=== PATIENT | male | born 1945 | race Caucasian/White ===

== ENCOUNTER 2018-03-04 20:05 | Emergency (ER) | payer MEDICARE ==
[~2018-03-04] VITALS: Ht 172.7 cm; Wt 81.7 kg
[2018-03-04] MEDS ORDERED: LEVE500 PO (20:15)
[2018-03-04] MEDS ORDERED: MEMA5TAB PO (20:15)
[2018-03-04] MEDS ORDERED: ESCI5 PO (20:15)
[2018-03-04] MEDS ORDERED: FLUC150A PO (20:15)
[2018-03-04] MEDS ORDERED: METF500C PO (20:16)
[2018-03-04] MEDS ORDERED: OLAN2.5 PO (20:17)
[2018-03-04] MEDS ORDERED: OLAN5 PO (20:17)
[2018-03-04] MEDS ORDERED: DESENEX43 GM TOP (20:17)
[2018-03-04] MEDS ORDERED: Desyrel50 MG PO (20:18)
[2018-03-04] MEDS ORDERED: PANT40 PO (20:18)
[2018-03-04] MEDS ORDERED: VITAMIN B-1100 MG PO (20:19)
[2018-03-04] MEDS ORDERED: ACET325 PO (20:19)
[2018-03-04] MEDS ORDERED: ANBESOL TOP (20:20)
[2018-03-04] MEDS ORDERED: Antacid Maximu355 ML PO (20:21)
[2018-03-04] MEDS ORDERED: BISA10S PR (20:21)
[2018-03-04] MEDS ORDERED: Enema133 M1 PR (20:22)
[2018-03-04] MEDS ORDERED: DOCU100 PO (20:22)
[2018-03-04] MEDS ORDERED: MELA3 PO (20:23)
[2018-03-04] MEDS ORDERED: IBUP600 PO (20:23)
[2018-03-04] MEDS ORDERED: LOPE2C PO (20:23)
[2018-03-04] MEDS ORDERED: Senna8.6 MG PO (20:24)
[2018-03-04] MEDS ORDERED: PROC25S PR (20:24)
[2018-03-04] MEDS ORDERED: Milk Of Ma400 MG/5 M PO (20:24)
[2018-03-04] MEDS ORDERED: ALBU90OI INH (20:25)
== END 2018-03-04 22:32 | disposition home or self-care (01) ==
LOC: ER 20:05
DX: T14.8XXA Other injury of unspecified body region, initial encounter (principal); W18.30XA Fall on same level, unspecified, initial encounter; Z79.899 Other long term (current) drug therapy; Z79.84 Long term (current) use of oral hypoglycemic drugs
CPT/HCPCS: 74176

== ENCOUNTER 2018-03-10 21:01 | Emergency (ER) | payer MEDICARE, OTHER ==
[~2018-03-10] VITALS: Ht 175.3 cm; Wt 90.7 kg
[~2018-03-10 21:01] MED LIST: ACET325 PO; ALBU90OI INH; ANBESOL TOP; Antacid Maximu355 ML PO; BISA10S PR; DESENEX43 GM TOP; DOCU100 PO; Desyrel50 MG PO; ESCI5 PO; Enema133 M1 PR; FLUC150A PO; IBUP600 PO; LEVE500 PO; LOPE2C PO; MELA3 PO; MEMA5TAB PO; METF500C PO; Milk Of Ma400 MG/5 M PO; OLAN2.5 PO; OLAN5 PO; PANT40 PO; PROC25S PR; Senna8.6 MG PO; VITAMIN B-1100 MG PO
== END 2018-03-10 22:37 | disposition home or self-care (01) ==
LOC: ER 21:01
DX: Z04.3 Encounter for examination and observation following other accident (principal); J44.9 Chronic obstructive pulmonary disease, unspecified; F32.9 Major depressive disorder, single episode, unspecified; F03.90 Unspecified dementia, unspecified severity, without behavioral disturbance, psychotic disturbance, mood disturbance, and anxiety; F17.290 Nicotine dependence, other tobacco product, uncomplicated; Z88.8 Allergy status to other drugs, medicaments and biological substances; Z79.899 Other long term (current) drug therapy; Z79.84 Long term (current) use of oral hypoglycemic drugs; W18.30XA Fall on same level, unspecified, initial encounter
CPT/HCPCS: 99283

== ENCOUNTER 2018-04-15 02:13 | Emergency (ER) | payer MEDICARE, OTHER ==
[~2018-04-15] VITALS: Ht 172.7 cm; Wt 77.1 kg
[2018-04-15 03:54] LABS: Source, Urine Clean Catch
[2018-04-15 04:00] LABS: Bilirubin, Urine Neg (Neg); Blood, Urine Neg (Neg); Glucose Qualitative, Urine Neg (Neg); Ketones, Urine Neg (Neg); Leukocyte Esterase, Urine Neg (Neg); Nitrite, Urine Neg (Neg); Protein, Urine Neg (Neg); Urobilinogen, Urine NORM (Normal)
[2018-04-15 04:06] LABS: Appearance, Urine Clear (Clear); Color, Urine Yellow (P-Yellow)
== END 2018-04-15 05:10 | disposition home or self-care (01) ==
LOC: ER 02:13
PROVIDERS: Emergency Medicine
DX: M54.5 Low back pain (principal); G89.29 Other chronic pain; M79.604 Pain in right leg; F32.9 Major depressive disorder, single episode, unspecified; F03.90 Unspecified dementia, unspecified severity, without behavioral disturbance, psychotic disturbance, mood disturbance, and anxiety; E11.9 Type 2 diabetes mellitus without complications; F17.200 Nicotine dependence, unspecified, uncomplicated; Z88.8 Allergy status to other drugs, medicaments and biological substances; Z79.899 Other long term (current) drug therapy; Z79.84 Long term (current) use of oral hypoglycemic drugs
CPT/HCPCS: 73502; 81003; 99284

== ENCOUNTER 2018-10-15 03:55 | Observation (INO) | payer MEDICARE, OTHER ==
[~2018-10-15] VITALS: Ht 172.7 cm; Wt 72.6 kg
[~2018-10-15 03:55] MED LIST changes: +ANTACID200 MG; +APLISOL; +DESENEX TOP; -DESENEX43 GM TOP; +OLAN10 PO; +ONDA4 PO; +Zithromax250 MG PO
[2018-10-15 04:52] LABS: BASOPHILS PERCENT AUTO 1 % (0-2); EOSINOPHILS ABSOLUTE AUTO 0.35 K/mm3 (0.00-0.68); EOSINOPHILS PERCENT AUTO 2 % (0-6); Hemoglobin 13.9 g/dL (13.5-17.5); IMMATURE GRAN ABSOLUTE AUTO 0.05 K/mm3 (0.00-0.10); IMMATURE GRAN PERCENT AUTO 0 % (0-1); LYMPHOCYTES ABSOLUTE AUTO 2.79 K/mm3 (0.84-5.20); LYMPHOCYTES PERCENT AUTO 17 % (21-46); MONOCYTES ABSOLUTE AUTO 0.68 K/mm3 (0.16-1.47); MONOCYTES PERCENT AUTO 4 % (4-13); Mean Corpuscular HGB 28.1 pg (26.0-34.0); Mean Corpuscular HGB Conc 32.3 g/dL (31.5-36.5); Mean Corpuscular Volume 87 fL (80-100); NEUTROPHILS ABSOLUTE AUTO 12.09 K/mm3 (1.96-9.15); NEUTROPHILS PERCENT AUTO 75 % (41-73); Platelet Count 275 K/mm3 (150-400); RDW Coefficient Variation 14.6 % (11.7-14.2); RDW Standard Deviation 46.7 fL (35.1-46.3); Red Blood Cell Count 4.94 M/mm3 (4.30-5.90); White Blood Cell Count 16.06 K/mm3 (4.00-11.30)
[2018-10-15 05:06] LABS: Alanine Aminotransfer (ALT/SGP 12 U/L (12-78); Albumin, Blood 4.4 g/dL (3.4-5.0); Albumin/Globulin Ratio 1.1 (0.8-1.8); Alk Phos 71 U/L (50-136); Anion Gap 7 mmol/L (6-16); Aspartate Aminotrans (AST/SGOT 12 U/L (12-37); Bilirubin, Total 0.6 mg/dL (0.1-1.0); Blood Urea Nitrogen 11 mg/dL (8-24); Bun/Creatinine Ratio 15.6 (12.0-20.0); CO2, Blood 29 mmol/L (21-32); Calcium, Blood 9.4 mg/dL (8.5-10.1); Chloride, Blood 106 mmol/L (98-108); Creatinine, Blood 0.71 mg/dL (0.60-1.20); Globulin, Blood 3.9 g/dL (2.2-4.0); Glomerular Filtration Rate >60 (60-); Glucose, Blood 141 mg/dL (70-99); Sodium, Blood 142 mmol/L (136-145); Total Protein, Blood 8.3 g/dL (6.4-8.2)
[2018-10-15 05:08] LABS: International Normalized Ratio 1.04; Prothrombin Time Results 10.7 Sec (9.7-11.5)
[2018-10-15 05:20] LABS: Source, Urine Catheter
[2018-10-15 05:25] LABS: Bilirubin, Urine Neg (Neg); Blood, Urine Neg (Neg); Glucose Qualitative, Urine Neg (Neg); Ketones, Urine 2+ (Neg); Leukocyte Esterase, Urine 1+ (Neg); Nitrite, Urine Neg (Neg); Protein, Urine Neg (Neg); Specific Gravity, Urine 1.005 (1.003-1.022); Urobilinogen, Urine NORM (Normal)
[2018-10-15 05:30] LABS: Appearance, Urine Clear (Clear); Color, Urine Yellow (P-Yellow)
[2018-10-15 05:31] LABS: Bacteria Few /hpf; Hyaline Casts 0-2 /lpf (0-2); Mucus Light ({null, 0-Heavy}); Red Blood Cells, Urine 0-2 /hpf (0-2); Squamous Epithelial Cells Not Seen /hpf (Few)
--- NOTE | 2018-10-15 07:45 | NUR ---
PT TO SDS FOR EGD W/MAC FOR FOOD IMPACTION. PT IS ALERT AND ORIENTED TO SELF ONLY. STATES PAIN AND POINTS TO CHEST/THROAT.
--- NOTE | 2018-10-15 08:17 | NUR ---
10/15/18 0817 Merissa Eller PT TO O3 # FOR PROCEDURE. SEE DR. Rodriguez notes for details.
--- NOTE | 2018-10-15 16:53 | NUR ---
PT HAS BEEN STABLE POST OP. PT CONFUSED, BED ALARM FOR SAFETY. PT DOES CALL OCCASIONALLY. PT USING URINAL WITH ASSIST. PT OOB WITH 2 ASSIST, VERY UNSTEADY ON FEET. PT DENIES PAIN. REG DIET PER DR BOLDEN. PT HAS HAD NO ISSUES SWALLOWING SPEECH EVAL CANCELLED. CONT IV FLUIDS X1 BAG. PT GETTING IV KEPPRA AND ABX. REPEAT CXR IN THE AM.
[2018-10-16 04:30] LABS: Hematocrit 33.3 % (37.0-53.0); Hemoglobin 10.5 g/dL (13.5-17.5); Mean Corpuscular HGB 27.7 pg (26.0-34.0); Mean Corpuscular HGB Conc 31.5 g/dL (31.5-36.5); Mean Corpuscular Volume 88 fL (80-100); Mean Platelet Volume 9.7 fL (9.1-12.4); Platelet Count 191 K/mm3 (150-400); RDW Coefficient Variation 14.6 % (11.7-14.2); RDW Standard Deviation 47.5 fL (35.1-46.3); Red Blood Cell Count 3.79 M/mm3 (4.30-5.90); White Blood Cell Count 11.07 K/mm3 (4.00-11.30)
[2018-10-16 04:50] LABS: Alanine Aminotransfer (ALT/SGP 10 U/L (12-78); Albumin, Blood 3.1 g/dL (3.4-5.0); Alk Phos 50 U/L (50-136); Anion Gap 6 mmol/L (6-16); Aspartate Aminotrans (AST/SGOT 9 U/L (12-37); Bilirubin, Total 0.8 mg/dL (0.1-1.0); Blood Urea Nitrogen 8 mg/dL (8-24); CO2, Blood 27 mmol/L (21-32); Calcium, Blood 7.8 mg/dL (8.5-10.1); Chloride, Blood 108 mmol/L (98-108); Creatinine, Blood 0.73 mg/dL (0.60-1.20); Globulin, Blood 3.1 g/dL (2.2-4.0); Glomerular Filtration Rate >60 (60-); Glucose, Blood 97 mg/dL (70-99); Potassium, Blood 3.3 mmol/L (3.5-5.5); Sodium, Blood 141 mmol/L (136-145); Total Protein, Blood 6.2 g/dL (6.4-8.2)
--- NOTE | 2018-10-16 08:43 | NUR ---
SHIFT SUMMARY PT ORIENTED TO SELF AND SITUATION. COOPERATIVE AND ABLE TO FOLLOW DIRECTION. S/P EGD; ABD SOFT; BTX4; PT DENIES NAUSEA. ASPIRATION PRECUATIONS. BED ALARM AND SIDE RAILS X3 FOR SAFETY. DR. GOMEZ NOTIFIED 0540 AM OF Hgb DROP FROM 13.9 TO 10.5, PT RECIEVING IV FLUIDS AND BP'S IN 100'S; NO NEW ORDERS RECIEVED. PT TO IMAGING AND BACK TO FLOOR THIS AM. CALL LIGHT IN REACH. REPORT GIVEN TO DAY SHIFT RN.
--- NOTE | 2018-10-16 15:31 | NUR ---
DISCHARGE SUMMARY PT LEFT VIA WC WITH TRANSPORT TO [facility] WITH ALL PERSONAL POSSESSIONS. IV DC'D.
== END 2018-10-16 11:40 | disposition home or self-care (01) ==
LOC: ER 03:55 → SURS 03:56 → MEDS 03:56 → SURS 07:33
PROVIDERS: Emergency Medicine; Internal Medicine Gastroenterology; ADMIT Internal Medicine
PROC: 0DC58ZZ Extirpation of Matter from Esophagus, Via Natural or Artificial Opening Endoscopic (ICD-10-PCS; principal; 2018-10-15 07:45)
PROC: 0D758ZZ Dilation of Esophagus, Via Natural or Artificial Opening Endoscopic (ICD-10-PCS; principal; 2018-10-15 07:45)
DX: T18.128A Food in esophagus causing other injury, initial encounter (principal); K22.2 Esophageal obstruction; K44.9 Diaphragmatic hernia without obstruction or gangrene; K22.8 Other specified diseases of esophagus; F03.90 Unspecified dementia, unspecified severity, without behavioral disturbance, psychotic disturbance, mood disturbance, and anxiety; G40.909 Epilepsy, unspecified, not intractable, without status epilepticus; E11.9 Type 2 diabetes mellitus without complications; F17.210 Nicotine dependence, cigarettes, uncomplicated; G47.00 Insomnia, unspecified; Z79.899 Other long term (current) drug therapy; Z88.8 Allergy status to other drugs, medicaments and biological substances
CPT/HCPCS: 36415; 71046; 80053; 81001; 82947; 83605; 85025; 85027; 85610; 85730; 87040; 87077; 87086; 87186; 93005; 93010; 94640; 94760; 96365; 96366; 96367; 96372; 96376; 99285-25; G0378; J0295; J0330; J1650; J1953; J2543; J7030; J7120

== ENCOUNTER → 2018-12-24 | Outpatient (CLI) | payer MEDICARE, OTHER ==
[2018-12-25 09:23] LABS: Source, Urine Clean Catch
[2018-12-25 09:32] LABS: Bilirubin, Urine Neg (Neg); Blood, Urine Neg (Neg); Glucose Qualitative, Urine Neg (Neg); Ketones, Urine Neg (Neg); Leukocyte Esterase, Urine Neg (Neg); Nitrite, Urine Neg (Neg); Protein, Urine Neg (Neg); Specific Gravity, Urine 1.005 (1.003-1.022); Urobilinogen, Urine NORM (Normal)
[2018-12-25 09:43] LABS: Appearance, Urine Clear (Clear); Color, Urine Yellow (P-Yellow)
== END | disposition home or self-care (01) ==
LOC: LAB 09:20 → LAB SHORT 09:20
PROVIDERS: Nurse Practitioner Family
DX: N39.0 Urinary tract infection, site not specified (principal)
CPT/HCPCS: 81003

== ENCOUNTER → 2019-01-31 | Outpatient (CLI) | payer MEDICARE, OTHER ==
[2019-01-31 20:30] LABS: Microalb/Creat Ratio UR, Rand 10.27 mg/g (0.000-30.000); Microalbumin, Random Urine 11.4 mg/L (0.000-20.000)
== END | disposition home or self-care (01) ==
LOC: LAB 19:03 → LAB SHORT 19:03
PROVIDERS: Nurse Practitioner Family
DX: E11.9 Type 2 diabetes mellitus without complications (principal)
CPT/HCPCS: 82043; 82570

== ENCOUNTER → 2019-02-28 | Outpatient (CLI) | payer MEDICARE, OTHER ==
[2019-03-01 11:41] LABS: Appearance, Urine Clear (Clear); Bilirubin, Urine Neg (Neg); Blood, Urine Neg (Neg); Color, Urine Yellow (P-Yellow); Glucose Qualitative, Urine Neg (Neg); Ketones, Urine Neg (Neg); Leukocyte Esterase, Urine Neg (Neg); Nitrite, Urine Neg (Neg); Protein, Urine Neg (Neg); Source, Urine Clean Catch; Specific Gravity, Urine 1.015 (1.003-1.022); Urobilinogen, Urine NORM (Normal)
== END | disposition home or self-care (01) ==
LOC: LAB 11:25 → LAB SHORT 11:25
PROVIDERS: Nurse Practitioner Family
DX: N39.0 Urinary tract infection, site not specified (principal)
CPT/HCPCS: 81003

== ENCOUNTER 2019-05-19 11:09 | Emergency (ER) | payer MEDICARE, OTHER ==
[~2019-05-19] VITALS: Ht 165.1 cm; Wt 90.7 kg
[2019-05-19] MEDS ORDERED: KETO15TC TOP (12:14)
== END 2019-05-19 13:20 | disposition home or self-care (01) ==
LOC: ER 11:09
DX: B37.49 Other urogenital candidiasis (principal); Z88.8 Allergy status to other drugs, medicaments and biological substances; Z79.899 Other long term (current) drug therapy; Z79.84 Long term (current) use of oral hypoglycemic drugs; F32.9 Major depressive disorder, single episode, unspecified; F03.90 Unspecified dementia, unspecified severity, without behavioral disturbance, psychotic disturbance, mood disturbance, and anxiety; E11.9 Type 2 diabetes mellitus without complications; K21.9 Gastro-esophageal reflux disease without esophagitis; G47.00 Insomnia, unspecified; F17.210 Nicotine dependence, cigarettes, uncomplicated
CPT/HCPCS: 99283

== ENCOUNTER 2019-07-12 19:12 | Emergency (ER) | payer MEDICARE, OTHER ==
[~2019-07-12] VITALS: Ht 172.7 cm; Wt 74.8 kg
[~2019-07-12 19:12] MED LIST changes: +KETO15TC TOP
[2019-07-12] MEDS ORDERED: GABA100 PO ×2 (19:24)
[2019-07-12] MEDS ORDERED: ESCI10 PO (19:24)
[2019-07-12] MEDS ORDERED: LEVE500 PO (19:25)
[2019-07-12] MEDS ORDERED: METF500 PO (19:25)
[2019-07-12] MEDS ORDERED: MELA3 PO (19:25)
[2019-07-12] MEDS ORDERED: MEMA5TAB PO (19:25)
[2019-07-12] MEDS ORDERED: MIRT30 PO (19:25)
[2019-07-12] MEDS ORDERED: OLAN5 PO (19:26)
[2019-07-12] MEDS ORDERED: TRAZ100 PO (19:26)
[2019-07-12] MEDS ORDERED: Tylenol325 MG PO (19:26)
[2019-07-12] MEDS ORDERED: Zantac150 MG PO (19:26)
[2019-07-12] MEDS ORDERED: Ventolin/Prove6.7 GM INH (19:27)
[2019-07-12 19:47] LABS: BASOPHILS ABSOLUTE AUTO 0.06 K/mm3 (0.00-0.23); BASOPHILS PERCENT AUTO 1 % (0-2); EOSINOPHILS ABSOLUTE AUTO 0.57 K/mm3 (0.00-0.68); EOSINOPHILS PERCENT AUTO 7 % (0-6); Hemoglobin 12.5 g/dL (13.5-17.5); IMMATURE GRAN ABSOLUTE AUTO 0.02 K/mm3 (0.00-0.10); IMMATURE GRAN PERCENT AUTO 0 % (0-1); LYMPHOCYTES ABSOLUTE AUTO 3.07 K/mm3 (0.84-5.20); LYMPHOCYTES PERCENT AUTO 39 % (21-46); MONOCYTES ABSOLUTE AUTO 0.41 K/mm3 (0.16-1.47); MONOCYTES PERCENT AUTO 5 % (4-13); Mean Corpuscular HGB 27.4 pg (26.0-34.0); Mean Corpuscular HGB Conc 31.3 g/dL (31.5-36.5); Mean Corpuscular Volume 88 fL (80-100); Mean Platelet Volume 10.6 fL (9.1-12.4); NEUTROPHILS ABSOLUTE AUTO 3.73 K/mm3 (1.96-9.15); NEUTROPHILS PERCENT AUTO 47 % (41-73); Platelet Count 237 K/mm3 (150-400); RDW Coefficient Variation 15.6 % (11.7-14.2); RDW Standard Deviation 49.9 fL (35.1-46.3); Red Blood Cell Count 4.57 M/mm3 (4.30-5.90); White Blood Cell Count 7.86 K/mm3 (4.00-11.30)
[2019-07-12 20:04] LABS: Alanine Aminotransfer (ALT/SGP 14 U/L (12-78); Albumin, Blood 3.6 g/dL (3.4-5.0); Alk Phos 66 U/L (50-136); Anion Gap 3 mmol/L (6-16); Aspartate Aminotrans (AST/SGOT 8 U/L (12-37); Bilirubin, Total 0.2 mg/dL (0.1-1.0); Blood Urea Nitrogen 12 mg/dL (8-24); Bun/Creatinine Ratio 18.4 (12.0-20.0); CO2, Blood 31 mmol/L (21-32); Calcium, Blood 9.1 mg/dL (8.5-10.1); Chloride, Blood 104 mmol/L (98-108); Creatinine, Blood 0.65 mg/dL (0.60-1.20); Globulin, Blood 3.6 g/dL (2.2-4.0); Glomerular Filtration Rate >60 (60-); Glucose, Blood 182 mg/dL (70-99); Potassium, Blood 4.2 mmol/L (3.5-5.5); Sodium, Blood 138 mmol/L (136-145); Total Protein, Blood 7.2 g/dL (6.4-8.2)
== END 2019-07-12 22:40 | disposition home or self-care (01) ==
LOC: ER 19:12
PROVIDERS: Emergency Medicine
DX: S01.01XA Laceration without foreign body of scalp, initial encounter (principal); E11.9 Type 2 diabetes mellitus without complications; K21.9 Gastro-esophageal reflux disease without esophagitis; G47.00 Insomnia, unspecified; F17.200 Nicotine dependence, unspecified, uncomplicated; Z88.8 Allergy status to other drugs, medicaments and biological substances; Z79.899 Other long term (current) drug therapy; Z79.84 Long term (current) use of oral hypoglycemic drugs; W01.10XA Fall on same level from slipping, tripping and stumbling with subsequent striking against unspecified object, initial encounter
CPT/HCPCS: 36415; 70450; 80053; 84484; 85025; 85730; 93005; 93010; 99284-25

== ENCOUNTER 2019-08-20 21:32 | Inpatient (IN) | payer MEDICARE, OTHER ==
[~2019-08-20] VITALS: Ht 172.7 cm; Wt 79.1 kg
[~2019-08-20 21:32] MED LIST changes: +ESCI10 PO; +GABA100 PO; +METF500 PO; +MIRT30 PO; +TRAZ100 PO; +Tylenol325 MG PO; +Ventolin/Prove6.7 GM INH; +Zantac150 MG PO
[2019-08-20 22:09] LABS: BASOPHILS ABSOLUTE AUTO 0.06 K/mm3 (0.00-0.23); BASOPHILS PERCENT AUTO 1 % (0-2); EOSINOPHILS ABSOLUTE AUTO 0.59 K/mm3 (0.00-0.68); EOSINOPHILS PERCENT AUTO 6 % (0-6); Hematocrit 39.7 % (37.0-53.0); Hemoglobin 12.4 g/dL (13.5-17.5); IMMATURE GRAN ABSOLUTE AUTO 0.02 K/mm3 (0.00-0.10); IMMATURE GRAN PERCENT AUTO 0 % (0-1); LYMPHOCYTES PERCENT AUTO 42 % (21-46); MONOCYTES ABSOLUTE AUTO 0.53 K/mm3 (0.16-1.47); MONOCYTES PERCENT AUTO 6 % (4-13); Mean Corpuscular HGB 27.7 pg (26.0-34.0); Mean Corpuscular HGB Conc 31.2 g/dL (31.5-36.5); Mean Corpuscular Volume 89 fL (80-100); Mean Platelet Volume 10.2 fL (9.1-12.4); NEUTROPHILS ABSOLUTE AUTO 4.24 K/mm3 (1.96-9.15); NEUTROPHILS PERCENT AUTO 45 % (41-73); Platelet Count 260 K/mm3 (150-400); RDW Coefficient Variation 15.5 % (11.7-14.2); RDW Standard Deviation 50.7 fL (35.1-46.3); Red Blood Cell Count 4.47 M/mm3 (4.30-5.90); White Blood Cell Count 9.34 K/mm3 (4.00-11.30)
[2019-08-20] MEDS ORDERED: ANTACID PLUS A355 M2 PO (22:22)
[2019-08-20] MEDS ORDERED: BISA10S PR (22:23)
[2019-08-20] MEDS ORDERED: IBUP600 PO (22:23)
[2019-08-20] MEDS ORDERED: Loperamide2 MG (22:24)
[2019-08-20] MEDS ORDERED: OXYC5 (22:24)
[2019-08-20] MEDS ORDERED: OLAN5 PO (22:25)
[2019-08-20 22:29] LABS: Alanine Aminotransfer (ALT/SGP 14 U/L (12-78); Albumin, Blood 3.4 g/dL (3.4-5.0); Albumin/Globulin Ratio 0.9 (0.8-1.8); Alk Phos 89 U/L (50-136); Anion Gap 5 mmol/L (6-16); Aspartate Aminotrans (AST/SGOT 11 U/L (12-37); Bilirubin, Total 0.3 mg/dL (0.1-1.0); Blood Urea Nitrogen 12 mg/dL (8-24); Bun/Creatinine Ratio 16.2 (12.0-20.0); CO2, Blood 32 mmol/L (21-32); Calcium, Blood 9.1 mg/dL (8.5-10.1); Chloride, Blood 105 mmol/L (98-108); Creatinine, Blood 0.74 mg/dL (0.60-1.20); Globulin, Blood 3.9 g/dL (2.2-4.0); Glomerular Filtration Rate >60 (60-); Glucose, Blood 138 mg/dL (70-99); Potassium, Blood 3.9 mmol/L (3.5-5.5); Sodium, Blood 142 mmol/L (136-145); Total Protein, Blood 7.3 g/dL (6.4-8.2); Troponin I <0.015 ng/mL (0.000-0.040)
[2019-08-21 00:59] LABS: PCO2 Arterial 50.4 mmHg (35-45); PO2 Arterial 63.2 mmHg (80-100); pH Blood Arterial 7.36 (7.35-7.45)
[2019-08-21 04:05] LABS: BASOPHILS ABSOLUTE AUTO 0.07 K/mm3 (0.00-0.23); BASOPHILS PERCENT AUTO 0 % (0-2); EOSINOPHILS ABSOLUTE AUTO 0.61 K/mm3 (0.00-0.68); EOSINOPHILS PERCENT AUTO 4 % (0-6); Hematocrit 39.8 % (37.0-53.0); IMMATURE GRAN ABSOLUTE AUTO 0.05 K/mm3 (0.00-0.10); IMMATURE GRAN PERCENT AUTO 0 % (0-1); LYMPHOCYTES ABSOLUTE AUTO 3.03 K/mm3 (0.84-5.20); LYMPHOCYTES PERCENT AUTO 18 % (21-46); MONOCYTES ABSOLUTE AUTO 0.93 K/mm3 (0.16-1.47); MONOCYTES PERCENT AUTO 5 % (4-13); Mean Corpuscular HGB 27.6 pg (26.0-34.0); Mean Corpuscular HGB Conc 30.2 g/dL (31.5-36.5); Mean Platelet Volume 10.2 fL (9.1-12.4); NEUTROPHILS ABSOLUTE AUTO 12.59 K/mm3 (1.96-9.15); NEUTROPHILS PERCENT AUTO 73 % (41-73); Platelet Count 223 K/mm3 (150-400); RDW Coefficient Variation 15.5 % (11.7-14.2); RDW Standard Deviation 51.7 fL (35.1-46.3); Red Blood Cell Count 4.35 M/mm3 (4.30-5.90); White Blood Cell Count 17.28 K/mm3 (4.00-11.30)
[2019-08-21 04:06] LABS: Mean Corpuscular Volume 92 fL (80-100)
[2019-08-21 04:31] LABS: Anion Gap 8 mmol/L (6-16); Blood Urea Nitrogen 12 mg/dL (8-24); Bun/Creatinine Ratio 17.6 (12.0-20.0); CO2, Blood 26 mmol/L (21-32); Calcium, Blood 9.2 mg/dL (8.5-10.1); Chloride, Blood 107 mmol/L (98-108); Creatinine, Blood 0.68 mg/dL (0.60-1.20); Glomerular Filtration Rate >60 (60-); Glucose, Blood 103 mg/dL (70-99); Potassium, Blood 3.8 mmol/L (3.5-5.5); Sodium, Blood 141 mmol/L (136-145)
--- NOTE | 2019-08-21 05:22 | NUR ---
SHIFT SUMMARY PT SLEEPING COMFORTABLY IN ROOM SINCE ARRIVAL. NO ACUTE CHANGES IN STATUS SINCE ARRIVAL TO UNIT. PT ON CPAP W/ SATS >92%. PT HAS PLEASENT AFFECT, BUT IS CONFUSED AND NEEDS REORIENTING WITH EVERY VISIT INTO ROOM. DENIES ANY CP OR SOB WHILE AT REST. PT HAS NOT GOTTEN OUT OF BED SINCE ARRIVAL. USED URINAL IN BED. SURGICAL INCISIONS NOTED TO PENIS FROM RECENT CIRCUMCISION, APPEAR TO BE C/D/I AND HEALING WELL. DENIED OTHER NEEDS. CALL LIGHT IN REACH, BED ALARM ON.
--- NOTE | 2019-08-21 08:28 | NUR ---
AM NOTE. ASSUMED CARE OF PT APROX 0700. PT IS A&Ox2, PT IS AWAKE AND ALERT BUT ORIENTED ONLY TO HIMSELF AT THIS TIME. PT WAS ADMITTED FOR RESP FAILURE. PT IS CURRENTLY ON 3L NC WITH O2 SATS AT 94%. PT IS FORGETFULL AND HAS BEEN TAKING O2 OFF, SATS WILL DROP TO THE LOW 80'S. PT'S VS STABLE AT THIS TIME. NO EDEMA NOTED ON ASSESSMENT. PT IS IN NSR W/PACS 70'S-80'S. L/S COARSE RHONCHI T/O. BT NORMOACTIVE, ABD SOFT AND NONTENDER. THIS RN CALLED THE [facility]ARE FACILITY WHERE THE PT LIVES, PER THE PT'S RN PT DOES NOT USE O2 AT HOME. PT IS CURRENTLY NPO UNTIL SPEECH EVALUATION IS DONE. WILL CONTINUE TO MONITOR.
--- NOTE | 2019-08-21 12:16 | NUR ---
Initial Visit: Palliative Care Consult for Advanced Care Planning. Spoke with Myron Simon prior to visit. [place] reports Pt has been refusing BIPAP and oxygen. Pt resting in bed upon arrival. He is A&OX1/2. Pt unable to verbalize appropriate place, and year. Pt also unsure of reason for hospital stay and states "I think because of my breathing". Pt denies pain at this time. Pt mildly anxious. Pt's memory poor and has to be reorientated often throughout the visit. Spoke with bedside nurse Nikki and discussed case. Called Pt's facility [facility] and spoke with facility nurse Leticia. Leticia reports at baseline Pt is cooperative with care and medication compliance. Leticia reports Pt ambulates occasionaly with a walker but usually uses wheel chair for mode of transportation. Pt requires assistance with ambulation, transfers, bathing, and dressing. Pt is also incontinent of bowel and bladder. Pt is able to feed himself. Pt at baseline has a good appetite. Leticia reports the last couple of days the Pt's appetite has been poor. Discussed no clear healthcare decision maker. Leticia reports only contact for Pt is his high risk case manager Amanda. Called Pt's high risk case manager Popeye and left voicemail requesting a return phone call. Plan: Palliative Care will attempt finding healthcare decision maker to discuss goals of care and advanced care planning.
--- NOTE | 2019-08-21 14:41 | NUR ---
PT UPDATE... AT APROX 1415 PT HAD A WITNESSED FALL. PT HAD GOTTEN UP FROM RECLINER CHAIR AND WAS ATTEMPTING TO WALK TO THE DOORWAY WHEN A STAFF MEMBER SAW HIM. PER STAFF THE FALL WAS A CONTROLLED FALL TO THE FLOOR. PT IS NOW C/O OF "SOME PAIN" TO THE R ELBOW/ARM, NO RED AREA, HEMATOMA IS NOTED AT THIS TIME. PT WAS ASSESSED, VS STABLE. WILL CONTINUE TO MONITOR.
--- NOTE | 2019-08-21 17:51 | NUR ---
SHIFT SUMMARY. NO ACUTE NEGATIVE CHANGES NOTED THIS SHIFT. PT HAS BEEN REFUSING TO WEAR THE NASAL CANNULA FOR MOST OF THIS SHIFT. PT'S CURRENT O2 SATS ON RA ARE >93%, THIS IS IMPROVED FROM THE LOW 80'S THIS MORNING. PT'S VS HAVE BEEN STABLE. PT IS VERY CONFUSED, YELLING OUT AND FORGETTING TO USE THE CALL LIGHT. BED ALARM IS ON D/T PT TRYING TO CLIMB OUT OF BED. PT WAS ABLE TO USE THE URINAL ONCE THIS SHIFT. CALL LIGHT IN REACH, BED IS LOCKED AND LOW WILL CONTINUE TO MONITOR UNTIL REPORT IS GIVEN TO ONCOMING RN.
--- NOTE | 2019-08-22 05:57 | NUR ---
SHIFT SUMMARY PATIENT ORIENTED TO SELF ONLY. PATIENT FOUND ATTEMPTING TO GET OUT OF BED ON MULTIPLE OCCASIONS THROUGHOUT MUSIC TEACHER. PATIENT PLACED ON CPAP AT HS BUT THEN WAS HEARD SCREAMING "HELP" AND ATTEMPTING TO RIP MASK OFF FACE. PLACED PATIENT BACK ON NC BUT PATIENT CONTINUES TO TAKE NC OFF. CONTINUOUS SPO2 SHOWS PATIENT BETWEEN 89-92% ON RA. WILL CONTINUE TO MONITOR.
[2019-08-22] MEDS ORDERED: Prednisone10 MG PO (13:07)
[2019-08-22] MEDS ORDERED: ALBU3IS NEB (13:37)
--- NOTE | 2019-08-22 15:41 | NUR ---
DISCHARGE PT DISCHARGED, RETURNED TO [facility] VIA [facility] WHEELCHAIR.
== END 2019-08-22 15:31 | disposition home or self-care (01) | DRG 189 ==
LOC: ER 21:32 → MEDS 08-21 02:15 → PCU 08-21 02:24 → MEDS 08-21 18:33
PROVIDERS: Emergency Medicine; Nurse Practitioner Acute Care; ADMIT Hospitalist
PROC: 5A09357 Assistance with Respiratory Ventilation, Less than 24 Consecutive Hours, Continuous Positive Airway Pressure (ICD-10-PCS; principal; 2019-08-21)
DX: J96.01 Acute respiratory failure with hypoxia (principal); J44.1 Chronic obstructive pulmonary disease with (acute) exacerbation; E11.9 Type 2 diabetes mellitus without complications; E66.01 Morbid (severe) obesity due to excess calories; R13.10 Dysphagia, unspecified; K21.9 Gastro-esophageal reflux disease without esophagitis; F01.50 Vascular dementia, unspecified severity, without behavioral disturbance, psychotic disturbance, mood disturbance, and anxiety; F32.9 Major depressive disorder, single episode, unspecified; F43.10 Post-traumatic stress disorder, unspecified; G40.909 Epilepsy, unspecified, not intractable, without status epilepticus; F17.200 Nicotine dependence, unspecified, uncomplicated; Z79.84 Long term (current) use of oral hypoglycemic drugs; Z79.899 Other long term (current) drug therapy; Z68.26 Body mass index [BMI] 26.0-26.9, adult
CPT/HCPCS: 36415; 36600; 71045; 80048; 80053; 82803; 82947; 83880; 84145; 84484; 85025; 92610; 93005; 93010; 94640; 94660; 94762; 96365; 96366; 97116; 97162; 97530; 99285-25; C9113; J1650; J1953; J2543; J2930; J7050

== ENCOUNTER → 2019-10-11 | Outpatient (CLI) | payer MEDICARE, OTHER ==
[~2019-10-11] MED LIST changes: +ALBU3IS NEB; +ANTACID PLUS A355 M2 PO; +Loperamide2 MG; +OXYC5; +Prednisone10 MG PO
[2019-10-11 13:51] LABS: Source, Urine Clean Catch
[2019-10-11 15:18] LABS: Bilirubin, Urine Neg (Neg); Blood, Urine Neg (Neg); Glucose Qualitative, Urine Neg (Neg); Ketones, Urine Neg (Neg); Leukocyte Esterase, Urine Neg (Neg); Nitrite, Urine Neg (Neg); Protein, Urine 1+ (Neg); Urobilinogen, Urine NORM (Normal)
[2019-10-11 15:30] LABS: Appearance, Urine Clear (Clear); Color, Urine Yellow (P-Yellow)
== END | disposition home or self-care (01) ==
LOC: LAB SHORT 13:48 → LAB 13:48
PROVIDERS: Nurse Practitioner Family
DX: N39.0 Urinary tract infection, site not specified (principal)
CPT/HCPCS: 81003

== ENCOUNTER → 2019-10-30 | Outpatient (CLI) | payer MEDICARE, OTHER ==
[2019-10-31 14:14] LABS: Bilirubin, Urine Neg (Neg); Blood, Urine Neg (Neg); Glucose Qualitative, Urine Neg (Neg); Ketones, Urine 1+ (Neg); Leukocyte Esterase, Urine Neg (Neg); Nitrite, Urine Neg (Neg); Protein, Urine Neg (Neg); Source, Urine Clean Catch; Urobilinogen, Urine NORM (Normal)
[2019-10-31 14:22] LABS: Appearance, Urine Clear (Clear); Color, Urine Yellow (P-Yellow)
== END | disposition home or self-care (01) ==
LOC: LAB SHORT 12:32 → LAB 12:32
PROVIDERS: Nurse Practitioner Family
DX: N39.0 Urinary tract infection, site not specified (principal)
CPT/HCPCS: 81003

== ENCOUNTER → 2019-11-04 | Outpatient (CLI) | payer MEDICARE, OTHER | END | disposition home or self-care (01) | LOC: LAB 12:38 → LAB SHORT 12:38 | DX: E11.9 Type 2 diabetes mellitus without complications (principal); E78.5 Hyperlipidemia, unspecified | CPT/HCPCS: 82043 ==

== ENCOUNTER → 2020-02-07 | Outpatient (CLI) | payer MEDICARE, OTHER ==
[2020-02-07 12:25] LABS: BASOPHILS ABSOLUTE AUTO 0.07 K/mm3 (0.00-0.23); BASOPHILS PERCENT AUTO 1 % (0-2); EOSINOPHILS ABSOLUTE AUTO 0.55 K/mm3 (0.00-0.68); EOSINOPHILS PERCENT AUTO 6 % (0-6); Hematocrit 37.7 % (37.0-53.0); Hemoglobin 11.5 g/dL (13.5-17.5); IMMATURE GRAN ABSOLUTE AUTO 0.03 K/mm3 (0.00-0.10); IMMATURE GRAN PERCENT AUTO 0 % (0-1); LYMPHOCYTES ABSOLUTE AUTO 2.99 K/mm3 (0.84-5.20); LYMPHOCYTES PERCENT AUTO 30 % (21-46); MONOCYTES ABSOLUTE AUTO 0.54 K/mm3 (0.16-1.47); MONOCYTES PERCENT AUTO 5 % (4-13); Mean Corpuscular HGB 26.6 pg (26.0-34.0); Mean Corpuscular HGB Conc 30.5 g/dL (31.5-36.5); Mean Corpuscular Volume 87 fL (80-100); Mean Platelet Volume 10.6 fL (9.1-12.4); NEUTROPHILS ABSOLUTE AUTO 5.81 K/mm3 (1.96-9.15); NEUTROPHILS PERCENT AUTO 58 % (41-73); Platelet Count 256 K/mm3 (150-400); RDW Coefficient Variation 14.9 % (11.7-14.2); RDW Standard Deviation 47.5 fL (35.1-46.3); Red Blood Cell Count 4.33 M/mm3 (4.30-5.90); White Blood Cell Count 9.99 K/mm3 (4.00-11.30)
[2020-02-07 12:48] LABS: Alanine Aminotransfer (ALT/SGP 14 U/L (12-78); Albumin, Blood 3.1 g/dL (3.4-5.0); Albumin/Globulin Ratio 0.8 (0.8-1.8); Alk Phos 92 U/L (50-136); Anion Gap 5 mmol/L (6-16); Aspartate Aminotrans (AST/SGOT 11 U/L (12-37); Bilirubin, Total 0.3 mg/dL (0.1-1.0); Blood Urea Nitrogen 12 mg/dL (8-24); Bun/Creatinine Ratio 20.4 (12.0-20.0); CHOL/HDL RATIO 2.5; CO2, Blood 31 mmol/L (21-32); Calcium, Blood 8.9 mg/dL (8.5-10.1); Chloride, Blood 106 mmol/L (98-108); Cholesterol 135 mg/dL (50-200); Creatinine, Blood 0.59 mg/dL (0.60-1.20); Globulin, Blood 3.9 g/dL (2.2-4.0); Glomerular Filtration Rate >60 (60-); Glucose, Blood 132 mg/dL (70-99); HDL Cholesterol 54 mg/dL (>39); LDL/HDL RATIO 1.2; Low Density Lipoprotein Chol 65 mg/dL (0-110); Sodium, Blood 142 mmol/L (136-145); Triglycerides 82 mg/dL (30-160); Very Low Density Lipoprot Chol 16 mg/dL (6-32)
== END | disposition home or self-care (01) ==
LOC: LAB 09:29 → LAB SHORT 09:29
PROVIDERS: Nurse Practitioner Family
DX: E78.2 Mixed hyperlipidemia (principal); Z79.899 Other long term (current) drug therapy
CPT/HCPCS: 80053; 80061; 80177; 85025

== ENCOUNTER → 2020-04-07 | Outpatient (CLI) | payer MEDICARE, OTHER ==
[~2020-04-07] MED LIST changes: +AMOCLA875 PO; +Prednisone20 MG PO
[2020-04-07 18:48] LABS: Source, Urine Clean Catch
[2020-04-07 19:36] LABS: Appearance, Urine Clear (Clear); Bilirubin, Urine Neg (Neg); Blood, Urine Neg (Neg); Color, Urine Yellow (P-Yellow); Glucose Qualitative, Urine Neg (Neg); Ketones, Urine Neg (Neg); Leukocyte Esterase, Urine 1+ (Neg); Nitrite, Urine Neg (Neg); Protein, Urine 1+ (Neg); Specific Gravity, Urine 1.015 (1.003-1.022); Urobilinogen, Urine NORM (Normal)
[2020-04-07 19:43] LABS: Bacteria Few /hpf; Calcium Oxalate Crystals Few /hpf; Mucus Light (0-Heavy); Red Blood Cells, Urine 0-2 /hpf (0-2); Squamous Epithelial Cells Not Seen /hpf (Few)
== END | disposition home or self-care (01) ==
LOC: LAB 18:46 → LAB SHORT 18:46
PROVIDERS: Nurse Practitioner Family
DX: N39.0 Urinary tract infection, site not specified (principal)
CPT/HCPCS: 81001; 87077; 87086; 87186

== ENCOUNTER 2020-04-11 12:37 | Emergency (ER) | payer MEDICARE, OTHER ==
[~2020-04-11] VITALS: Ht 175.3 cm; Wt 77.1 kg
[~2020-04-11 12:37] MED LIST changes: -AMOCLA875 PO; -Prednisone20 MG PO
[2020-04-11 13:28] LABS: BASOPHILS ABSOLUTE AUTO 0.08 K/mm3 (0.00-0.23); BASOPHILS PERCENT AUTO 1 % (0-2); EOSINOPHILS ABSOLUTE AUTO 1.15 K/mm3 (0.00-0.68); EOSINOPHILS PERCENT AUTO 14 % (0-6); Hematocrit 36.7 % (37.0-53.0); Hemoglobin 11.1 g/dL (13.5-17.5); IMMATURE GRAN ABSOLUTE AUTO 0.03 K/mm3 (0.00-0.10); IMMATURE GRAN PERCENT AUTO 0 % (0-1); LYMPHOCYTES ABSOLUTE AUTO 2.75 K/mm3 (0.84-5.20); LYMPHOCYTES PERCENT AUTO 33 % (21-46); MONOCYTES ABSOLUTE AUTO 0.41 K/mm3 (0.16-1.47); MONOCYTES PERCENT AUTO 5 % (4-13); Mean Corpuscular HGB 26.8 pg (26.0-34.0); Mean Corpuscular HGB Conc 30.2 g/dL (31.5-36.5); Mean Corpuscular Volume 89 fL (80-100); Mean Platelet Volume 9.7 fL (9.1-12.4); NEUTROPHILS ABSOLUTE AUTO 3.82 K/mm3 (1.96-9.15); NEUTROPHILS PERCENT AUTO 46 % (41-73); Platelet Count 275 K/mm3 (150-400); RDW Coefficient Variation 15.3 % (11.7-14.2); RDW Standard Deviation 49.6 fL (35.1-46.3); Red Blood Cell Count 4.14 M/mm3 (4.30-5.90); White Blood Cell Count 8.24 K/mm3 (4.00-11.30)
[2020-04-11 13:47] LABS: Alanine Aminotransfer (ALT/SGP 12 U/L (12-78); Albumin, Blood 3.2 g/dL (3.4-5.0); Albumin/Globulin Ratio 0.9 (0.8-1.8); Alk Phos 82 U/L (50-136); Anion Gap 4 mmol/L (6-16); Aspartate Aminotrans (AST/SGOT 12 U/L (12-37); Bilirubin, Total 0.4 mg/dL (0.1-1.0); Blood Urea Nitrogen 9 mg/dL (8-24); CO2, Blood 33 mmol/L (21-32); Calcium, Blood 8.9 mg/dL (8.5-10.1); Chloride, Blood 105 mmol/L (98-108); Globulin, Blood 3.7 g/dL (2.2-4.0); Glomerular Filtration Rate >60 (60-); Glucose, Blood 105 mg/dL (70-99); Potassium, Blood 4.2 mmol/L (3.5-5.5); Sodium, Blood 142 mmol/L (136-145); Total Protein, Blood 6.9 g/dL (6.4-8.2); Troponin I <0.015 ng/mL (0.000-0.040)
[2020-04-11] MEDS ORDERED: AMOCLA875 PO (14:43)
[2020-04-18] MEDS ORDERED: ALBU90OI INH (05:09)
[2020-04-18] MEDS ORDERED: Prednisone20 MG PO (05:09)
== END 2020-04-11 17:02 | disposition home or self-care (01) ==
LOC: ER 12:37
PROVIDERS: Emergency Medicine
DX: J18.9 Pneumonia, unspecified organism (principal); Z20.828 Contact with and (suspected) exposure to other viral communicable diseases; E11.9 Type 2 diabetes mellitus without complications; F32.9 Major depressive disorder, single episode, unspecified; F43.10 Post-traumatic stress disorder, unspecified; F17.200 Nicotine dependence, unspecified, uncomplicated
CPT/HCPCS: 71045; 80053; 83880; 84484; 85025; 93005; 93010; 96365; 99285-25; J2543; U0002